=== PATIENT | female | born 1980 | race Two or more races ===

== ENCOUNTER 2017-02-02 17:14 | Emergency (ER) | payer OTHER, MEDICAID ==
[~2017-02-02] VITALS: Ht 157.5 cm; Wt 60.8 kg
[~2017-02-02 17:14] MED LIST: OMEP20TA44; TRAM50TA2
[2017-02-02 17:24] VITALS: BP 114/63
== END 2017-02-02 18:19 | disposition home or self-care (01) ==
LOC: ER 17:16
DX: S56.911A Strain of unspecified muscles, fascia and tendons at forearm level, right arm, initial encounter (principal); X58.XXXA Exposure to other specified factors, initial encounter; Y93.89 Activity, other specified; Y92.89 Other specified places as the place of occurrence of the external cause; Y99.8 Other external cause status

== ENCOUNTER 2017-09-30 23:15 | Emergency (ER) | payer MEDICAID ==
[~2017-09-30] VITALS: Ht 152.4 cm; Wt 63.5 kg
[2017-09-30 23:41] VITALS: BP 124/67
[2017-10-01] MEDS ORDERED: TETANUS-DIPTH-ACEL PERTUSSIS 0.5ML SYRG IM ONE (03:30)
== END 2017-10-01 04:05 | disposition home or self-care (01) ==
LOC: ER 23:18
DX: S01.81XA Laceration without foreign body of other part of head, initial encounter (principal); X58.XXXA Exposure to other specified factors, initial encounter; Y93.89 Activity, other specified; Y92.89 Other specified places as the place of occurrence of the external cause; Y99.8 Other external cause status
CPT/HCPCS: 12013; 70450; 81025; 90715; 99152